=== PATIENT | male | born 1965 | race Caucasian/White ===

== ENCOUNTER 2019-10-17 10:10 | Emergency (ER) | payer OTHER, BC, SELFPAY ==
--- NOTE | ~2019-10-17 | CT_ITS ---
EXAMINATION: CT chest abdomen pelvis w con DATE: 10/17/2019 11:29 INDICATION: 4 foot fall. Left back pain, chest pain, low back pain. TECHNIQUE: Computed tomography (CT) of the chest, abdomen, and pelvis was performed with 100 cc Omnip aque 350 intravenous contrast. Automated exposure control and iterative reconstruction technique were employed. Exam dose: 975.27 mGy-cm total exam DLP. COMPARISON: None FINDINGS: CHEST CT: Normal size and homogeneous enhancement of the thyroid gland. Normal heart size. No pericardial or pleural effusion. There are calcified left hilar nodes and calcified superior segment left lower lobe pulmonary granulo ma, consistent with old pulmonary granulomatous disease. No hilar or mediastinal mass lesion or lymphadenopathy. No thoracic aortic aneurysm or dissection. There is mild atelectasis in the lower lobes. ABDOMEN/PELVIS CT: 8 mm hepatic dome cyst. No other hepatic space-occupying mass lesion is evident. Normal splenic size. No pancreatic mass lesion, calcification or ductal dilatation. The gallbladder is present. No bile duct dilatation. No adrenal mass lesion. No renal mass lesion or urinary tract calculus or hydroureteronephrosis. The urinary bladder, prostat e gland and seminal vesicles are unremarkable. Normal caliber of the abdominal aorta. No intraperitoneal or retroperitoneal or pelvic mass lesion or adenopathy or ascites or abnormal fluid collection. Normal appendix. No bowel obstruction, bowel wall thickening, pneumatosis or intraperitoneal free air . There is diverticulosis of the colon; no CT evidence of diverticulitis. The urinary bladder, prostate gland and seminal vesicles are unremarkable. There are bilateral L5 pars interarticularis defects with grade 1 anterolisthesis at L5-S1 There is multilevel degenerative disc disease, severe at L3-4 and L5-S1. There is minimal retrolisthesis at L1-2, L2-3, L3-4, mild at L4-5. IMPRESSION: 8 mm hepatic dome cyst Diverticulosis of the colon Bilateral L5 pars intra-articular is defects with grade 1 anterolisthesis at L5-S1 Multilevel degenerative disc disease of the lumbar spine, with associated retrolisthesis at some leve ls Reviewed, dictated and finalized at [facility] Reviewed, dictated and finalized at [facility] IMPRESSION: 8 mm hepatic dome cyst Diverticulosis of the colon Bilateral L5 pars intra-articular is defects with grade 1 anterolisthesis at L5 -S1 Multilevel degenerative disc disease of the lumbar spine, with associated retro listhesis at some levels
[2019-10-17 10:18] VITALS: BP 132/79; PULSE 60; RESP 18; TEMP 36.9; O2SAT 100
[2019-10-17] MEDS: SODIUM CHLORIDE 0.9% IV 1,000 ML 999 ML IV CONT (10:53)
[2019-10-17] MEDS: FAMOTIDINE 20 MG/2 ML VIAL IV PUSH (10:53)
[2019-10-17 10:56] LABS: Basophils Percent Auto 0.5 % (0.2-1.2); Eosinophils Percent Auto 0.9 % (0-4.4); Hematocrit 47.7 % (42.0-52.0); Hemoglobin 16.4 g/dL (14.0-18.0); Immature Granulocyte Absolute 0.03 K/mm3 (0.00-0.031); Immature Granulocyte Percent A 0.7 % (0-0.5); Lymphocytes Absolute Auto 1.01 K/mm3 (0.9-3.2); Lymphocytes Percent Auto 23.3 % (18.3-44.2); Mean Corpuscular HGB Conc 34.4 g/dl (32-36); Mean Corpuscular Hemoglobin 31.7 pg (26-34); Mean Corpuscular Volume 92.1 fl (80-100); Mean Platelet Volume 11.2 fl (7.4-10.4); Monocytes Absolute Auto 0.2 K/mm3 (0.1-0.6); Monocytes Percent Auto 5.5 % (2.6-8.5); Neutrophils Percent Auto 69.1 % (45.5-73.1); Platelet Count Result 159 k/mm3 (150-375); Red Blood Count 5.18 M/mm3 (4.6-6.20); White Blood Count 4.3 K/mm3 (4.5-10.0)
[2019-10-17 11:07] LABS: Prothrombin Time 12.7 Seconds (11.1-14.7)
[2019-10-17 11:08] LABS: Partial Thromboplastin Time 22.8 SECONDS (22.3-36.8)
[2019-10-17 11:10] LABS: Alanine Aminotransferase 28 U/L (4-50); Albumin Level 4.4 g/dL (3.5-5.1); Alkaline Phosphatase 54 U/L (38-126); Anion Gap 8 mmol/L (8-16); Aspartate Amino Transferase 25 U/L (17-59); Bilirubin,Total 0.9 mg/dL (0.2-1.3); Blood Urea Nitrogen 17 mg/dL (9-20); Calcium 8.6 mg/dL (8.4-10.2); Carbon Dioxide 25 mmol/L (22-30); Chloride 105 mmol/L (98-107); Estimated Glomerular Filt Rate > 60; Glucose 132 mg/dL (75-110); Potassium 4.1 mmol/L (3.4-5.0); Sodium 138 mmol/L (137-145)
--- NOTE | 2019-10-17 11:52 | ED.GENADULT ---
HPI - General Adult General Chief complaint: Fall <Greg Allred PA-C - Last Filed: 10/17/19 12:56> Stated complaint: Fall <Greg Allred PA-C - Last Filed: 10/17/19 12:56> Time Seen by Provider: 10/17/19 10:34 <IGLESIA Santana Last Filed: 10/17/19 12:56> Source: patient and family <Greg Allred PA-C - Last Filed: 10/17/19 12:56> Mode of arrival: ambulatory <Greg Allred PA-C - Last Filed: 10/17/19 12:56> Limitations: no limitations <Greg Allred PA-C - Last Filed: 10/17/19 12:56> History of Present Illness HPI narrative: Patient is a 54-year-old male who presents to emergency department for evaluation of injuries related to falling approximately around 5 feet off the back of a truck onto his side has since had moderate to severe pain to the thoracic and left rib region. Patient did strike the head but denies loss of consciousness syncope or headache at this time. Patient notes mild abrasions to the bilateral elbows that is minimal in nature and not made worse with activity and movement. Patient presents and discomfort and has not had anything for pain injury occurred just prior to arrival. Denies loss of consciousness or syncope presents with a GCS of 15 <Greg Allred PA-C - Last Filed: 10/17/19 12:56> Related Data Allergies/adverse reactions: Allergies Allergy/AdvReac Type Severity Reaction Status Date / Time No Known Allergies Allergy Verified 10/17/19 10:22 <Greg Allred PA-C - Last Filed: 10/17/19 12:56> Review of Systems Review of Systems: All systems reviewed & are unremarkable except as noted in HPI and below <Greg Allred PA-C - Last Filed: 10/17/19 12:56> PMFSH Social History Social History: Social History (Updated 10/17/19 @ 11:53 by Greg Allred PA-C) Smoking status: Never smoker Gender identity (if verbalized by the patient): Male <IGLESIA Santana Last Filed: 10/17/19 12:56> Exam Narrative: Exam Narrative: GENERAL: Well-appearing, well-nourished, uncomfortable, and in no acute distress. HEAD: Normocephalic, atraumatic. EYES: PERRLA and EOMI. ENT: Nares clear, no rhinorrhea or epistaxis. Mucous membranes moist. NECK: Supple. No adenopathy or masses. CHEST: Clear to auscultation. No respiratory distress. No wheezes rales or rhonchi HEART: Regular rate and rhythm. No murmur heard. Normal peripheral pulses. ABDOMEN: Soft, tenderness in the left upper abdomen no rebound or guarding or deformity noted, nondistended EXTREMITIES: Normal range of motion. No edema. Midthoracic and left rib tenderness. No cervical. Left-sided lumbar tenderness no midline tenderness SKIN: Warm, dry, no rash. Abrasions to the posterior bilateral elbows NEURO: No focal deficits. Alert and oriented x3. Cranial nerves II through XII grossly intact. Normal speech. Neurovascularly intact PSYCH: Normal mood and affect. <IGLESIA Santana Last Filed: 10/17/19 12:56> Course Course Emergency Course: Patient in the room at this time aware of case findings treatment plan and diagnosis given medications in the emergency department resting comfortably felt appropriate for discharge home <IGLESIA Santana Last Filed: 10/17/19 12:56> Vital Signs Vital signs: Vital Signs Temperature 98.5 F 10/17/19 10:18 Pulse Rate 60 10/17/19 10:18 Respiratory Rate 18 10/17/19 10:18 Blood Pressure 132/79 10/17/19 10:18 Pulse Oximetry 100 10/17/19 10:18 Temperature 98.5 F 10/17/19 10:18 Pulse Rate 70 10/17/19 13:18 Respiratory Rate 18 10/17/19 13:18 Blood Pressure 118/70 10/17/19 13:18 Pulse Oximetry 100 10/17/19 13:18 <IGLESIA Santana Last Filed: 10/17/19 12:56> Vital Signs Temperature 98.5 F 10/17/19 10:18 Pulse Rate 60 10/17/19 10:18 Respiratory Rate 18 10/17/19 10:18 Blood Pressure 132/79 10/17/19 10:18 Pulse Oximetry 100
[2019-10-17] MEDS: KETOROLAC 30 MG/ML VIAL (*BKC) IV PUSH (13:01)
[2019-10-17 13:18] VITALS: BP 118/70; PULSE 70; RESP 18; O2SAT 100
== END 2019-10-17 13:19 | disposition home or self-care (01) ==
PROVIDERS: Emergency Medicine Emergency Medical Services; Emergency Provider Emergency Medicine
DX: S09.90XA Unspecified injury of head, initial encounter (principal); W17.89XA Other fall from one level to another, initial encounter; S50.312A Abrasion of left elbow, initial encounter; S50.311A Abrasion of right elbow, initial encounter; R10.9 Unspecified abdominal pain; M54.6 Pain in thoracic spine
CPT/HCPCS: 36415; 71260; 74177; 80053; 85025; 85610; 85730; 96361; 96365; 96375; 99284; J0131; J1885; J7030; Q9967